=== PATIENT | male | born 1960 | race Caucasian/White ===

== ENCOUNTER → 2018-09-18 | Day surgery (SDC) | payer OTHER ==
[2018-09-14 14:56] LABS: BASOPHILS # (AUTO) 0.1 (0.0-0.1); BASOPHILS % 0.8 % (0.0-1.0); EOSINOPHILS # (AUTO) 0.2 (0.0-0.4); EOSINOPHILS % 2.4 % (0.0-6.0); HEMATOCRIT 44.3 % (38.2-49.6); LYMPHOCYTES # (AUTO) 2.2 (1.0-3.2); LYMPHOCYTES % 35.9 % (18.0-39.1); MEAN CORPUSCULAR HEMOGLOBIN 32.8 pg (28-32); MEAN CORPUSCULAR HGB CONC 33.9 g/dL (31-35); MEAN CORPUSCULAR VOLUME 96.7 fL (81-99); MONOCYTES # (AUTO) 0.7 (0.2-0.8); MONOCYTES % 10.7 % (4.4-11.3); NEUTROPHILS # (AUTO) 3.1 (2.1-6.9); NEUTROPHILS % 49.7 % (38.7-80.0); PLATELET COUNT 253 x10e3/uL (140-360); RED BLOOD COUNT 4.58 x10e6/uL (4.3-5.7); RED CELL DISTRIBUTION WIDTH 11.9 % (11.7-14.4)
--- NOTE | 2018-09-14 15:16 | Diagnostic Imaging Report ---
EXAMINATION: PA and lateral views of the chest. COMPARISON: None CLINICAL HISTORY: Preoperative study for hernia repair DISCUSSION: Lines/tubes: None. Lungs: The lungs are well inflated and clear. There is no evidence of pneumonia or pulmonary edema. Pleura: There is no pleural effusion or pneumothorax. Heart and mediastinum: The cardiomediastinal silhouette is normal. Bones and soft tissues: No acute bony abnormalities. Degenerative changes in the thoracic spine IMPRESSION: No acute cardiopulmonary abnormalities. Signed by: Dr. Calin Pelaez M.D. on 09/14/2018 3:13 PM
[~2018-09-18] MED LIST: ACETAMINOPHEN 1000 MG/100 ML 100 ML IV ONE; BUPIVACAINE 0.25%/EPI 30ML SDV INJ ONE; CEFAZOLIN SOD 1 GM VIAL ONE; DEXAMETHASONE SOD PHOS INJ 4 MG/ML VIAL ONE; FENTANYL CITRATE/PF 100MCG/2 ML INJ ONE; HYDROMORPHONE 2MG/ML 2 MG/ML ML ONE; KETOROLAC TROMETHAMINE 30 MG/ML VIAL ONE; LIDOCAINE HCL 2% LOCAL INJ 5 ML SDV VIAL INJ ONE; MIDAZOLAM HCL 2 MG/2 ML VIAL ONE; ONDANSETRON HCL INJ 2MG/ML 2ML 2 MG/ML VIAL ONE; PROMETHAZINE HCL (IM) 25 MG/ML VIAL ONE; PROPOFOL IV EMULSION 10 MG/ML 20 ML VIAL ONE; ROCURONIUM BROMIDE 10 MG/ML 5ML VIAL ONE; SEVOFLURANE INHAL SOLN 250 ML PEN BTL ONE
--- OUTSIDE RECORDS SUMMARY | 2018-09-18 09:28 | XMS REPORT ---
[facility] Address Unknown Phone Unavailable Care Team Providers Care Skelp Processor Name Role Phone Robson HINKLE Unavailable Unavailable Jessy CACERES Unavailable Unavailable Problems This patient has no known problems. Allergies, Adverse Reactions, Alerts This patient has no known allergies or adverse reactions. Medications This patient has no known medications. Results Test Description Test Time Test Comments Text Results Atomic Results Result Comments CHEST 2 VIEWS 2018-09-14 15:12:00 [place] [address] Patient Name: CRUZ SOLIS MR #: [id number] : 1960 Age/Sex: 58/M Req #: [id number] Adm Physician: Ordered by: HALLIE HINKLE MD Report #: [id number] Location: OR Room/Bed: Procedure: [id number] DX/CHEST 2 VIEWS Exam Date: 09/14/18 Exam Time: 1436 REPORT STATUS: Signed EXAMINATION: PA and lateral views of the chest. COMP ARISON: None CLINICAL HISTORY: Preoperative study for hernia repair DISCUSSION: Lines/tubes: None. Lungs: The lungs are well inflated and clear. There is no evidence of pneumonia or pulmonary edema. Pleura: There is no pleural effusion or pneumothorax. Heart and mediastinum: The cardiomediastinal silhouette is normal. Bones and soft tissues: No acute b timi abnormalities. Degenerative changes in the thoracic spine IMPRESSION: No acute cardiopulmonary abnormalities. Signed by: Dr. Norman Sabillon M.D. on 09/14/2018 3:13 PM Dictated By: NORMAN SABILLON MD 12 Transcribed By: GEOVANNI on 09/14/181512 COPY TO: HALLIE HINKLE MD BASIC METABOLIC PANEL 2017-09-09 13:04:00 SODIUM (BEAKER) (test eqny=519) 139 meq/L 136-145 POTASSIUM (BEAKER) (test sogu=978) 4.0 meq/L 3.5-5.1 Specimen slightly hemolyzed CHLORIDE (BEAKER) (test umbt=550) 108 meq/L 98-107 CO2 (BEAKER) (test zhqf=422) 24 meq/L 22-29 BLOOD UREA NITROGEN (BEAKER) (test ygoq=585) 8 mg/dL 7-21 CREATININE (BEAKER) (test jkml=250) 0.70 mg/dL 0.57-1.25 Specimen slightly hemolyzed GLUCOSE RANDOM (BEAKER) (test ranu=099) 119 mg/dL 70-105 CALCIUM (BEAKER) (test jrhc=540) 8.0 mg/dL 8.4-10.2 EGFR (BEAKER) (test jtdu=9700) 117 mL/min/1.73 sq m ESTIMATED GFR IS NOT ACCURATE CREATININE CLEARANCE IN PREDICTING GLOMERULAR FILTRATION RATE. ESTIMATED GFR IS NOT APPLICABLE FOR DIALYSIS PATIENTS. [id number] 12:38:00* Test Item Value Reference Range Comments HEMOGLOBIN (BEAKER) (test cltb=586) 13.4 GM/DL 13.7-17.5 HEMATOCRIT (BEAKER) (test eris=625) 39.1 % 40.1-51.0
--- OUTSIDE RECORDS SUMMARY | 2018-09-18 09:28 | XMS REPORT | Clinical Summary ---
Author [facility] Address Unknown Phone Unavailable Care Team Providers Care Pvc Monitor Name Role Phone Nick Lomax PCP Allergies No Known Allergies Medications End Date Status Medication Sig Dispensed Refills Start Date Active sildenafil (VIAGRA) 100 Take 50 mg by 0 MG tablet mouth daily as needed for Erectile Dysfunction. Active Problems Problem Noted Date Peyronie disease 09/09/2017 Social History Date Tobacco Use Types Packs/Day Years Used Never Smoker Smokeless Tobacco: Snuff Current User Alcohol Use Drinks/Week oz/Week Comments Yes 14 Glasses of 8.4 wine Sex Assigned at Date Recorded Not on file Industry Job Start Date Occupation Not on file Not on file Not on file Travel End Travel History Travel Start No recent travel history available. Last Filed Vital Signs Not on file Plan of Treatment Not on file Implants Device Identifier Shelf Expiration Date Model / Serial / Lot Implanted Type Area Manufactur er 08/10/2022 [id number] / / [id number] Prosthesis Penile Rte Ext 2cm Urology N/A: Penis [employer] [id number] - [id number] SYS Implanted: Qty: 1 on 09/09/2017 by Mina Ott MD 12/30/2018 [id number] / / [id number] Pump Preconnect Cx 15cm [id number] - Urology N/A: Scrotum [employer] [id number] SYS Implanted: Qty: 1 on 09/09/2017 by Mina Ott MD 08/13/2019 [id number] / / [id number] Resvr Ams 700 100ml [id number] - Urology Right: Groin [employer] [id number] SYS Implanted: Qty: 1 on 09/09/2017 by Mina Ott MD 08/03/2022 [id number] / / [id number] Accsry Kt Pnle 700 Ultrex [id number] Urology N/A: Penis [employer] - [id number] SYS Implanted: Qty: 1 on 09/09/2017 by Mina Ott MD Results Not on fileafter 09/17/2017 Insurance Payer Benefit Subscriber ID Type Phone Address Plan / Group [employer] - [employer] CARE A[employer] OPEN xxxxxxxxxx HMO/POS ACCESS HMO NAP Advance Directives For more information, please contact: [facility] [address] [place] [id number] Date Inactivated Comments Code Status Date Activated 09/10/2017 4:25 PM Full Code 09/09/2017 2:05 PM This code status was determined by: Patient
[2018-09-18 19:45] VITALS: BP 135/89
--- NOTE | 2018-09-19 00:52 | Operative Report ---
DATE OF PROCEDURE: 09/18/2018 SURGEON: Tigre Meza MD PREOPERATIVE DIAGNOSIS: Left inguinal hernia. POSTOPERATIVE DIAGNOSIS: Left inguinal hernia. OPERATION PERFORMED: Repair of left inguinal hernia with extended Prolene hernia system. TIGHTENER: TAM Wilson. ANESTHESIA: General endotracheal. COMPLICATIONS: None. ESTIMATED BLOOD LOSS: Minimal. DESCRIPTION OF PROCEDURE: With the patient lying in bed in the supine position under good general endotracheal anesthesia, the abdomen was prepped with Betadine solution and draped in the usual manner. Left inguinal incision was made and was carried down through the subcutaneous tissue down to the external oblique aponeurosis. External oblique was then opened along the length of its fibers and the external inguinal ring was opened. The cord was then mobilized and retracted. Exploration of the cord revealed the presence of a large hernia sac that extended all the way up into the top of the scrotum. This was slowly and carefully from all of the cord structures. In the medial aspect, this obviously contained a portion of the bladder, so we decided not to do a resection of the sac for rather simply to reduce it back to the intraabdominal cavity, which was done without any difficulty. The preperitoneal space was then entered right through the internal ring and a pocket was created without any difficulty. An extended Prolene hernia system was then placed in the preperitoneal space and the underlay patch was expanded without any difficulty. The overlay patch was then placed over the floor and split inferolaterally to allow for passage of the cord. The mesh was sutured to the conjoined tendon and inguinal ligament using interrupted sutures of 2-0 Vicryl. The whole area was thoroughly irrigated. Perfect hemostasis was ascertained. All layers were infiltrated on the way out with solution of 0.25% Marcaine and 1% lidocaine mixed in equal parts. The external oblique aponeurosis was closed with a running suture of 2-0 Vicryl. The subcutaneous tissue was approximated with 3-0 plain and the skin was closed with clips. A dressing was applied. The sponge, lap, and needle count was correct. The patient tolerated the procedure well and returned to the recovery room in stable condition. MD EULALIA FormanR/MODL /[id number]
== END | disposition home or self-care (01) ==
LOC: OR 09:26
PROVIDERS: ATTEND Surgery
DX: K40.90 Unilateral inguinal hernia, without obstruction or gangrene, not specified as recurrent (principal); G35 Multiple sclerosis; E78.5 Hyperlipidemia, unspecified; Z01.810 Encounter for preprocedural cardiovascular examination; Z01.812 Encounter for preprocedural laboratory examination; Z01.818 Encounter for other preprocedural examination
CPT/HCPCS: 36415; 49505; 71046; 85025; 93005; C1781; J0131; J0690; J1100; J1170; J1885; J2001; J2250; J2405; J2550; J2704